=== PATIENT | male | born 1995 | race Caucasian/White ===

== ENCOUNTER 2017-08-27 22:18 | Inpatient (IN) | END 2017-09-01 16:00 | disposition home or self-care (01) | DRG 813 ==

== ENCOUNTER 2017-09-03 13:32 | Observation (INO) | END 2017-09-04 18:13 | disposition home or self-care (01) ==

== ENCOUNTER 2017-12-06 17:39 | Inpatient (IN) | END 2017-12-10 17:00 | disposition home health service (06) | DRG 813 ==

== ENCOUNTER 2018-02-19 17:56 | Emergency (ER) | END 2018-02-19 21:34 | disposition home or self-care (01) ==